=== PATIENT | female | born 1960 ===

== ENCOUNTER 2024-08-25 10:29 | Emergency (ER) | payer MEDICAID, OTHER ==
[~2024-08-25] VITALS: Ht 149.9 cm; Wt 58.1 kg
[2024-08-25] MEDS: IOHEXOL 350 MG/ML 100ML IJ ONE (10:48)
--- NOTE | 2024-08-25 11:03 | DVH ---
EXAM: CT STROKE CTH HISTORY: LEFT SIDE NUMBESS COMPARISON: None TECHNIQUE: Axial images of the head were obtained and reformatted in coronal and sagittal planes. All CT scans at this medical facility are performed using dose modulation techniques as appropriate t o a performed exam including the following: Automated exposure control was utilized; adjustment of th e MA and/or KV according to patient size; and use of iterative reconstruction technique. CT Dose: CTDI volume is 53 mGy. Dose-length product is 946 mGy*cm FINDINGS: There is no evidence of acute intracranial hemorrhage, mass, mass effect midline shift. There is no h ydrocephalus or extra-axial fluid collection. [place]-white matter differentiation is maintained. The visualized paranasal sinuses and mastoid air cells are clear. The calvarium is intact. IMPRESSION: 1. No acute intracranial process. HS:Y
[2024-08-25 11:13] LABS: Basophils # (auto) 0 10 ^3/uL (0-0.2); Basophils % (auto) 0.5 % (0.0-2.0); Eosinophils # (auto) 0.2 10 ^3/uL (0-0.8); Eosinophils % (auto) 3.1 % (0.0-7.0); Hematocrit 42.2 % (36.0-46.0); Hemoglobin 14.4 g/dL (12.2-16.2); Lymphocytes # (auto) 1.4 10 ^3/uL (0.4-5.4); Lymphocytes % (auto) 28.2 % (10.0-50.0); Mean Corpuscular Hemoglobin 30.5 pg (28.0-32.0); Mean Corpuscular Hgb Conc. 34.2 g/dL (32.0-36.0); Mean Corpuscular Volume 89.1 fL (80.0-100.0); Monocytes # (auto) 0.4 10 ^3/uL (0-1.3); Monocytes % (auto) 7.9 % (0.0-12.0); Neutrophils # (auto) 3.1 10 ^3/uL (1.6-8.6); Neutrophils % (auto) 60.3 % (37.0-80.0); Nucleated Red Blood Cells % 0.1 %; Platelet Count (auto) 282 10^3/uL (140-450); Red Blood Cells 4.74 10^6/uL (4.0-5.20); Red Cell Distribution Width 14.5 % (11.8-14.3); White Blood Cell 5.1 10^3/uL (4.4-10.8)
--- NOTE | 2024-08-25 11:14 | BSKYNEURO ---
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 Last Known Normal: 929 pst Possible Thrombolytic candidate: - not on warfarin or NOACs - no intracranial hemorrhage history - no recent major surgery - no known active major internal bleeding - no known blood disorders - no stroke in last 3 months # Scores Time of exam and NIHSS (): 08/25/2024, 10:53 Level of Consciousness 1a: [0] = Alert; keenly responsive LOC Questions 1b: [0] = Answers both questions correctly LOC Commands 1c: [0] = Performs both tasks correctly Best Gaze 2: [0] = Normal Visual 3: [0] = No visual loss Facial Palsy 4: [1] = Minor paralysis Motor Arm Left 5a: [0] = No drift Motor Arm Right 5b: [0] = No drift Motor Leg Left 6a: [0] = No drift Motor Leg Right 6b: [0] = No drift Limb Ataxia 7: [2] = Present in two limbs Sensory 8: [0] = Normal Best Language 9: [0] = No aphasia Dysarthria 10: [1] = [id number] dysarthria Extinction and Inattention 11: [0] = No abnormality NIHSS Total: 4 # Exam Vitals: vital signs reviewed SBP: 140s # Data Head CT: - no bleed - preliminarily reviewed by me, please refer to radiology read for official reading # Assessment Impression: - Ischemic Stroke (Acute) Patient says the ataxia in left arm is disabling. She works and would not be able to work with this permanent deficit. # Plan Thrombolytic/Intervention: IV thrombolytic and possible IA candidate Thrombolytic Dosing: IV tenecteplase 0.25 mg/kg, max dose 25 mg; single bolus IVP over 5 seconds Possible IA Candidate: - no signs and symptoms of LVO - CTA pending Time IV Thrombolytic Recommended (): 08/25/2024, 11:02 Labs: - hemoglobin A1c - lipid panel - troponin - TSH - ua Imaging: (urgency: STAT): - CT Angiogram Head and CT Angiogram Neck AND call back with results if abnormal Diagnostic Test: - echo with bubble study Therapy/Evaluation: - NPO until swallow evaluation - PT/OT evaluation - speech/swallow consultation Medication: - start statin with goal of LDL < 70 Thrombolytic Administration Recommendations: - I reviewed the risks/benefits/alternatives of IV thrombolytic therapy with the patient. They understand there is potential of life threatening hemorrhage from IV thrombolysis. I stated that I believe benefits outweighs risk. They wish to proceed with IV thrombolytic therapy. - BP goal< 180/105 for 24hrs post Thrombolytic administration - Call back if there is any decline in neurological condition - ICU admission - No antiplatelets or anticoagulants for next 24 hrs unless indicated for emergent IA procedure or other life threatening situation - Use Labetalol 10-20mg IV prn or Nicardipine gtt to maintain BP parameters - I have collected independent history specific to time last normal or last known well. We have collaborated with the ED provider and at this time, we have the most current timeline with the information that is available. Other: - If patient has any neurological deterioration please call me back immediately - I have discussed my recommendations with the referring provider - telemetry monitoring - LDL < 70 Disposition: transfer to ICU # Logistics Attestation of consult completion: The patient is located at: [facility]. Facility staff participated in the visit. I performed this telemedicine visit from my offsite office utilizing interactive 2 way audio and visual telecommunication technology. Total time spent in telemedicine encounter: I spent 21 minutes reviewing clinical data and/or imaging, obtaining history, examining the patient, communicating with the onsite care team, and in preparation of this report. Critical Care time: 21 minutes of this encounter were critical care time. Due to a high probability of clinically significant, life-threatening neurologic deterioration, the patient required my highest level of preparedness to intervene emergently. I spent this critical care time managing the patient in conjunction with on-site providers who requested my consultation. In addition to the above, this critical care time included recommendation and review of studi es, including imaging; arranging an urgent treatment and management plan with on-site providers; evaluation of patient's response to treatment; and documentation. This critical care time was performed to assess and manage the high probability of imminent, life-threatening deterioration that could result in neurologic catastrophe. # Demographics First Name: Shahla Last Name: Normager Villareal Facility: [facility] Electronically signed at 08/25/2024 11:10 ([place] Time) by Mani Camargo MD Yes THU CAMARGO MD Aug 25, 2024 11:14
--- NOTE | 2024-08-25 11:16 | DVH ---
CT ANGIO HEAD/Neck INDICATION: CVA EXAM DATE: 08/25/2024 10:46 AM COMPARISON: None RADIATION DOSE: CTDIvol: 23.29 mGy, DLP: 798.72 mGy*cm PROCEDURE: CT angiogram images were obtained of the head and neck. Coronal and sagittal reformatted i mages were created as well as 3D and/or MIP reconstructions. All CT scans at this medical facility are performed using dose modulation techniques as appropriate t o a performed exam including the following: Automated exposure control was utilized; adjustment of th e MA and/or KV according to patient size; and use of iterative reconstruction technique. FINDINGS: Head: On the CT angiographic images, the intracranial internal carotid arteries are patent without hemodyna mically significant stenosis. The anterior and middle cerebral arteries and their branches appear wit hin normal limits.. The vertebral basilar and posterior cerebral arteries are patent without hemodyn amically significant stenosis. There is no evidence of intracranial aneurysm or arteriovenous malform ation. There is no evidence of intracranial mass or hemorrhage. There is no abnormal enhancement. There is no hydrocephalus or extra-axial fluid collection. Neck: The common carotid, internal carotid, external carotid, and vertebral arteries are normal in caliber and appear patent without hemodynamically significant stenosis.. The vertebral arteries appear codomi nant. There is no evidence of stenosis or obvious dissection. There is no evidence of a soft tissue neck mass or pathologically enlarged cervical lymph nodes. The lung apices are clear. The osseous structures appear within normal limits. IMPRESSION: 1. Unremarkable CTA head. There is no hemodynamically significant stenosis in the intracranial arteri es. 2. Unremarkable CTA neck. There is no hemodynamically significant stenosis in the cervical segments o f the carotid and vertebral arteries. HS:Y
--- NOTE | 2024-08-25 11:27 | DVH ---
CHEST RADIOGRAPH Indication: LEFT SIDED NUMBESS Technique: Single frontal view of the chest was obtained COMPARISON: None FINDINGS: No pneumothorax, pulmonary edema, or consolidative infiltrates. The heart is upper limits of normal in size. The aortic arch is calcific. IMPRESSION: 1. No acute intrathoracic process.
[2024-08-25 11:31] LABS: INR 0.97 (0.9-1.15); Partial Thromboplastin Time 27.7 SEC (24.5-34.5); Prothrombin Time 10.3 sec (9.3-11.8)
[2024-08-25 11:32] LABS: Alanine Aminotransferase 21 U/L (7-40); Anion Gap 7 (5-15); Aspartate Aminotransferase 21 U/L (13-40); BUN/Creatinine Ratio 14.7 (10.0-20.0); Blood Urea Nitrogen 11 mg/dL (9-23); Carbon Dioxide 25 mmol/L (20-31); Chloride 105 mmol/L (98-107); Glucose 98 mg/dL (74-106); Magnesium 2.2 mg/dL (1.6-2.6); Potassium 3.5 mmol/L (3.5-5.1); Sodium 137 mmol/L (136-145)
[2024-08-25 11:33] LABS: Albumin 4.9 g/dL (3.2-4.8); Alkaline Phosphatase 121 U/L (46-116); Bilirubin, Total 0.5 mg/dL (0.2-1.0); Calcium 10.7 mg/dL (8.7-10.4); Total Protein 9.5 g/dL (5.7-8.2)
--- NOTE | 2024-08-25 11:34 | ED.PDOC ---
HPI (NEURO) HPI Comments 63Y F with PMHx DM, HTN, HLD, and thyroid disease presents to ED for chief complaint left sided facial droop and left-sided numbness/weakness x 0930 today. Pt reports tremors and difficulty speaking. Pt states she began to have unsteady gait approximately 30 minutes prior to ED arrival. Pt denies chest pain, abd pain, headache, and vision changes. Pt's last meal was at 0830 this morning. Pt denies use of blood thinners. No known allergies. Upon ED arrival, pt has lt facial droop, aphasia, and weakness. BS 99. No other symptoms reported. Chief Complaint: Left Sided Weakness Time Seen by MD: 10:35 Reviewed Notes: Nurses Notes, Medications, Allergies Information Source: Patient Mode of Arrival: Wheelchair Severity: Moderate Headache Severity: None Timing: Hours Duration: Since onset Weakness Location: (L) Sided Numbness Location: (L) Sided Onset: At rest Circumstances: Spontaneous Symptoms: Imbalance, Weakness, Numbness, Difficult speech History of: DM, Hypertension Modifying factors: Nothing Associated Signs and Symptoms: Numbness, Other Past Medical History PAST MEDICAL HISTORY: DM, High Lipids, HTN, Thyroid Surgical History: Unobtainable SIDE GLUER History: No Pertinent SIDE GLUER History Family History Family History: Unknown Social History Smoker: Non-Smoker Alcohol: Denies ETOH Use Drugs: Denies Drug Use Lives In: Home Constitutional: denies: chills, diaphoresis, fatigue, fever, malaise, sweats, weakness, others EENTM: denies: blurred vision, double vision, ear bleeding, ear discharge, ear drainage, ear pain, ear ringing, eye pain, eye redness, hearing loss, mouth pain, mouth swelling, nasal discharge, nose bleeding, nose congestion, nose pain, photophobia, tearing, throat pain, throat swelling, voice changes, others Respiratory: denies: cough, hemoptysis, orthopnea, SOB at rest, shortness of breath, SOB with excertion, stridor, wheezing, others Cardiovascular: denies: chest pain, dizzy spells, diaphoresis, Dyspnea on exertion, edema, irregular heart beat, left arm pain, lightheadedness, palpitations, PND, syncope, others Gastrointestinal: denies: abdomen distended, abdominal pain, blood streaked bowels, constipated, diarrhea, dysphagia, difficulty swallowing, hematemesis, melena, nausea, poor appetite, poor fluid intake, rectal bleeding, rectal pain, vomiting, others Genitourinary: denies: abnormal vagina bleeding, burning, dyspareunia, dysuria, flank pain, frequency, hematuria, incontinence, pain, , vagina discharge, urgency, others Neurological: reports: left sided numbness, left sided weakness, numbness, speech problems, tremors, others; denies: dizziness, fainting, headache, paresthesia, pre-existing deficit, right sided numbness, right sided weakness, seizure, tingling, weakness Musculoskeletal: denies: back pain, gout, joint pain, joint swelling, muscle pain, muscle stiffness, neck pain, others Integumetry: denies: bruises, change in color, change in hair/nails, dryness, laceration, lesions, lumps, rash, wounds, others Allergic/Immunocompromised: denies: Difficulty Healing, Frequent Infections, Hives, Itching, others Hematologic/Lymphatic: denies: anemia, blood clots, easy bleeding, easy bruising, swollen glands, others Endocrine: denies: excessive hunger, excessive sweating, excessive thirst, excessive urination, flushing, intolerance to cold, intolerance to heat, unexpl ained weight gain, unexplained weight loss, others Psychiatric: denies: anxiety, bipolar disorder, depression, hopeless, panic disorder, schizophrenia, sleepless, suicidal, others All Other Systems: Reviewed and Negative Physical Exam General Appearance: No Apparent Distress, Normal HEENT: Normal ENT Inspection, Pharynx Normal, TMs Normal Neck: Full Range of Motion, Non-Tender, Normal, Normal Inspection Respiratory: Chest Non-Tender, Lungs Clear, No Accessory Muscle Use, No Respiratory Distress, Normal Breath Sounds Cardiovascular: No Edema, No JVD, No Murmur, No Gallop, Normal Peripheral Pulses, Regular Rate/Rhythm Breast Exam: Deferred Gastrointestinal: No Organomegaly, Non Tender, No Pulsatile Mass, Normal Bowel Sounds, Soft Genitalia: Deferred Pelvic: Deferred Rectal: Deferred Extremities: No calf tenderness, Normal capillary refill, Normal inspection, Normal range of motion, Non-tender, No pedal edema Musculoskeletal : Apperance: Normal Neurologic: Alert, Other (Level of Consciousness 1a: [0] = Alert; keenly responsive; LOC Questions 1b: [0] = Answers both questions correctly; LOC Commands 1c: [0] = Performs both tasks correctly; Best Gaze 2: [0] = Normal Visual 3: [0] = No visual loss; Facial Palsy 4: [1] = Minor paralysis; Motor Arm Left 5a: [0] = No drift; Motor Arm Right 5b: [0] = No drift; Motor Leg Left 6a: [0] = No drift; Motor Leg Right 6b: [0] = No drift; Limb Ataxia 7: [2] = Present in two limbs; Sensory 8: [0] = Normal; Best Language 9: [0] = No aphasia; Dysarthria 10: [1] = Rhnu-me-zyjktmak dysarthria; Extinction and Inattention 11: [0] = No abnormality NIHSS Total: 4) Cerebellar Function: Normal Reflexes: Normal Skin: Dry, Normal Color, Warm Lymphatic: No Adenopathy Was a procedure done? Was a procedure done?: No Differential Diagnosis (SZ) Seizure: Alcohol Withdrawl, CVA/TIA, Hypoglycemia, Hyponatremia CVA: Antonio's Palsy, Delirium Tremens, DKA, Electrolyte Imbalance, Encephalopathy, SAH, TIA General Weakness: Anemia Headache: Closed Head Injury X-Ray, Labs, Meds, VS Vital Signs Date Time Temp Pulse Resp B/P (MAP) Pulse Ox O2 Delivery O2 Flow Rate FiO2 08/25/24 13:13 98.2 53 16 132/80 (97) 100 98.2 08/25/24 13:00 98.2 55 10 137/78 (97) 99 98.2 08/25/24 12:45 54 12 144/84 (104) 99 08/25/24 12:30 98.1 57 12 163/81 (108) 99 98.1 08/25/24 12:15 98.2 55 14 148/81 (103) 98 98.2 08/25/24 12:03 56 12 148/83 (104) 100 08/25/24 12:00 57 181/107 08/25/24 11:08 68 16 99 08/25/24 10:35 Room Air* 0 21 08/25/24 10:32 99.3 97 20 145/82 (103) 99 Lab Test 08/25/24 11:32 08/25/24 11:14 08/25/24 11:13 08/25/24 10:40 Range/Units Urine Color Colorless Yellow Urine Clarity Clear Clear Urine pH 7.0 5.0-9.0 Urine Specific [place] 1.021 1.001-1.035 Urine Protein Negative Negative Urine Ketones Negative Negative Urine Blood Negative Negative /uL Urine Nitrite Negative Negative Urine Bilirubin Negative Negative Urine Urobilinogen Normal Negative mg/dL Urine Leukocyte Esterase 1+ Negative /uL Urine RBC 1 0 - 4 /hpf Urine WBC 1 0 - 5 /hpf Urine Squamous Epithelial Cells Few <5 /hpf Urine Bacteria None seen None Seen /hpf Urine Glucose Normal Normal mg/dL Troponin I High Sensitivity < 3 L < 3 L </=34 ng/L POC Glucose 73 70-106 mg/dl White Blood Count 5.1 4.4-10.8 10^3/uL Red Blood Count 4.74 4.0-5.20 10^6/uL Hemoglobin 14.4 12.2-16.2 g/dL Hematocrit 42.2 36.0-46.0 % Mean Corpuscular Volume 89.1 80.0-100.0 fL Mean Corpuscular Hemoglobin 30.5 28.0-32.0 pg Mean Corpuscular Hemoglobin Concent 34.2 32.0-36.0 g/dL Red Cell Distribution Width 14.5 H 11.8-14.3 % Platelet Count 282 140-450 10^3/uL Mean Platelet Volume 7.0 6.9-10.8 fL Neutrophils (%) (Auto) 60.3 37.0-80.0 % Lymphocytes (%) (Auto) 28.2 10.0-50.0 % Monocytes (%) (Auto) 7.9 0.0-12.0 % Eosinophils (%) (Auto) 3.1 0.0-7.0 % Basophils (%) (Auto) 0.5 0.0-2.0 % Neutrophils # (Auto) 3.1 1.6-8.6 10 ^3/uL Lymphocytes # (Auto) 1.4 0.4-5.4 10 ^3/uL Monocytes # (Auto) 0.4 0-1.3 10 ^3/uL Eosinophils # (Auto) 0.2 0-0.8 10 ^3/uL Basophils # (Auto) 0 0-0.2 10 ^3/uL Nucleated Red Blood Cells 0.1 % Prothrombin Time 10.3 9.3-11.8 sec Prothrombin Time INR 0.97 0.9-1.15 Activated Partial Thromboplast Time 27.7 24.5-34.5 SEC Sodium Level 137 136-145 mmol/L Potassium Level 3.5 3.5-5.1 mmol/L Chloride Level 105 98-107 mmol/L Carbon Dioxide Level 25 20-31 mmol/L Anion Gap 7 5-15 Blood Urea Nitrogen 11 9-23 mg/dL Creatinine 0.75 0.550-1.02 mg/dL Glomerular Filtration Rate Calc 89 >90 mL/min BUN/Creatinine Ratio 14.7 10.0-20.0 Serum Glucose 98 74-106 mg/dL Calcium Level 10.7 H 8.7-10.4 mg/dL Magnesium Level 2.2 1.6-2.6 mg/dL Total Bilirubin 0.5 0.2-1.0 mg/dL Aspartate Amino Transferase (AST) 21 13-40 U/L Alanine Aminotransferase (ALT) 21 7-40 U/L Alkaline Phosphatase 121 H 46-116 U/L B-Type Natriuretic Peptide 23.88 0-100 pg/mL Total Protein 9.5 H 5.7-8.2 g/dL Albumin 4.9 H 3.2-4.8 g/dL Current Medications Medications (Trade) Dose Ordered Sig/Colin Route Start Time Stop Time Status Last Admin Tenecteplase (Tnkase) 15 mg ONCE ONCE IV 08/25/24 11:30 08/25/24 11:31 DC 08/25/24 12:00 Labetalol HCl (Labetalol HCl) 20 mg ONCE ONCE IV 08/25/24 12:00 08/25/24 12:01 DC 08/25/24 12:00 [place] [address] Ph: [phone] DIAGNOSTIC IMAGING Diagnostic Imaging Report : [id number] Signed PATIENT: KULWANT JACOBT: [id number] UNIT: [id number] : 1960 LOC: ER ROOM / BED: / AGE / SEX: 63 / F ADM STATUS: REG ER SERVICE 1035 ORDERING PHYSICIAN: MANHAZ MAYES MD PROCEDURE(s): CTH - STROKE CTH REASON: LEFT SIDE NUMBESS ORDER NUMBER(s): [id number], ACCESSION NUMBER(s): [id number] EXAM: CT STROKE CTH HISTORY: LEFT SIDE NUMBESS COMPARISON: None TECHNIQUE: Axial images of the head were obtained and reformatted in coronal and sagittal planes. All CT scans at this medical facility are performed using dose modulation techniques as appropriate to a performed exam including the following: Automated exposure control was utilized; adjustment of the MA and/or KV according to patient size; and use of iterative reconstruction technique. CT Dose: CTDI volume is 53 mGy. Dose-length product is 946 mGy*cm FINDINGS: There is no evidence of acute intracranial hemorrhage, mass, mass effect midline shift. There is no hydrocephalus or extra-axial fluid collection. [place]-white matter differentiation is maintained. The visualized paranasal sinuses and mastoid air cells are clear. The calvarium is intact. IMPRESSION: 1. No acute intracranial process. HS:Y ATED BY: STEVE MORA MD DICTATED DATE/TIME: 08/25/24 1100 SIGNED BY: STEVE MORA MD SIGNED DATE/TIME: 08/25/24 1100 CC: [place] [address] Ph: [phone] DIAGNOSTIC IMAGING Diagnostic Imaging Report : [id number] Signed PATIENT: KULWANT JACOBT: [id number] UNIT: [id number] : 1960 LOC: ER ROOM / BED: / AGE / SEX: 63 / F ADM STATUS: REG ER SERVICE 1041 ORDERING PHYSICIAN: MAHNAZ MAYES MD PROCEDURE(s): [place] - ANGIO HEAD/Neck REASON: CVA ORDER NUMBER(s): [id number], ACCESSION NUMBER(s): [id number] CT ANGIO HEAD/Neck INDICATION: CVA EXAM DATE: 08/25/2024 10:46 AM COMPARISON: None RADIATION DOSE: CTDIvol: 23.29 mGy, DLP: 798.72 mGy*cm PROCEDURE: CT angiogram images were obtained of the head and neck. Coronal and sagittal reformatted images were created as well as 3D and/or MIP reconstructions. All CT scans at this medical facility are performed using dose modulation techniques as appropriate to a performed exam including the following: Automated exposure control was utilized; adjustment of the MA and/or KV according to patient size; and use of iterative reconstruction technique. FINDINGS: Head: On the CT angiographic images, the intracranial internal carotid arteries are patent without hemodynamically significant stenosis. The anterior and middle cerebral arteries and their branches appear within normal limits.. The vertebral basilar and posterior cerebral arteries are patent without hemodynamically significant stenosis. There is no evidence of intracranial aneurysm or arteriovenous malformation. There is no evidence of intracranial mass or hemorrhage. There is no abnormal enhancement. There is no hydrocephalus or extra-axial fluid collection. Neck: The common carotid, internal carotid, external carotid, and vertebral arteries are normal in caliber and appear patent without hemodynamically significant stenosis.. The vertebral arteries appear codominant. There is no evidence of stenosis or obvious dissection. There is no evidence of a soft tissue neck mass or pathologically enlarged cervical lymph nodes. The lung apices are clear. The osseous structures appear within normal limits. IMPRESSION: 1. Unremarkable CTA head. There is no hemodynamically significant stenosis in the intracranial arteries. 2. Unremarkable CTA neck. There is no hemodynamically significant stenosis in the cervical segments of the carotid and vertebral arteries. HS:Y ATED BY: STEVE MORA MD DICTATED DATE/TIME: 08/25/24 111 SIGNED BY: STEVE MORA MD SIGNED DATE/TIME: 08/25/24 111 CC: [place] [address] Ph: [phone] DIAGNOSTIC IMAGING Diagnostic Imaging Report : [id number] Signed PATIENT: DARRELL LOMELI TACCT: [id number] UNIT: [id number] : 1960 LOC: ER ROOM / BED: / AGE / SEX: 63 / F ADM STATUS: REG ER SERVICE 1035 ORDERING PHYSICIAN: MAHNAZ MAYES MD PROCEDURE(s): CXR1 - CHEST XRAY 1 VIEW REASON: LEFT SIDED NUMBESS ORDER NUMBER(s): [id number], ACCESSION NUMBER(s): [id number] CHEST RADIOGRAPH Indication: LEFT SIDED NUMBESS Technique: Single frontal view of the chest was obtained COMPARISON: None FINDINGS: No pneumothorax, pulmonary edema, or consolidative infiltrates. The heart is upper limits of normal in size. The aortic arch is calcific. IMPRESSION: 1. No acute intrathoracic process. ATED BY: MADHAVI ADAMS MD DICTATED DATE/TIME: 08/25/241124 SIGNED BY: MADHAVI ADAMS MD SIGNED DATE/TIME: 08/25/241124 CC: X-Ray, Labs, Meds, VS Comment 63-year-old female with history of hypertension, hyperlipidemia, diabetes, hypothyroidism presenting here today with complaints of left-sided facial numbness/weakness and numbness/weakness to the left upper and lower extremities that started at 9:30 a.m. today, within the tPA window. No history of trauma. No recent history of illness. No prior history of stroke or heart attack. NIH stroke scale of 4. Patient was made a code stroke and CT head non-con and CT angio of the head and neck were unremarkable. I discussed the case with Neurology on-call who were in agreement with the plan to give the patient anti thrombotic and transfer for higher level of care. Checklist was completed inpatient without any major or relative contraindications to anti thrombotic medication and it was administered as per protocol. Patient did require a dose of labetalol 20 mg IV to reduce her borderline high blood pressure of 179/120. Patient tolerated both the labetalol in the antithrombotic well without any complications. Patient's son was at bedside who was in agreement with the plan as well. At 11:54 a.m., I spoke with [facility] attending who accepted the patient for transfer for higher level of care to his hospital. Time of 1ST Reevaluation: 11:05 Reevaluation 1ST: Unchanged Time of 2ND Reevaluation: 12:23 Reevaluation 2ND: Unchanged Time of 3RD Reevaluation: 12:56 Reevaluation 3RD: Unchanged Consultation: Other (Tele neuro for stroke) Patient Education/Counseling: Diagnosis, Treatment, Prognosis Family Education/Counseling: Diagnosis, Treatment, Prognosis Departure 1 Departure Time of Disposition: 13:34 Impression: Primary Impression: Ischemic stroke Additional Impression: Hypertension Disposition: 02 SHORT TERM HOSPITAL Admit to: ICU Condition: Guarded Critical Care Note Critical Care Time?: Yes (45 min-critical care time only) Stability Stability form required: Yes Stable for transfer: Other (Higher level of care) Comments Patient was accepted for transfer to higher level of care by [facility] attending Dr. Atwood at 11:54 a.m. after my discussion with him regarding the patient's case and management. Heart Score Heart Score: Heart Score Response (Comments) Value History N/A 0 EKG N/A 0 Age N/A 0 Risk Factors N/A 0 Troponin N/A 0 Total 0 I personally scribed for MAHNAZ MAYES MD ([facility] on 08/25/24 at 11:34. Electronically submitted by Ramya Whittington ([employer]). I personally scribed for MAHNAZ MAYES MD ([facility]) on 08/25/24 at 11:41. Electronically submitted by Ramya Whittington ([employer]). I personally scribed for MAHNAZ MAYES MD ([facility]) on 08/25/24 at 13:14. Electronically submitted by Ramya Whittington ([employer]). MAHNAZ MAYES MD Aug 25, 2024 11:34
[2024-08-25 11:42] LABS: Urine Bacteria None Seen /hpf (None Seen)
[2024-08-25 11:57] LABS: Urine Blood Negative /uL (Negative); Urine Clarity Clear (Clear); Urine Color Colorless (Yellow); Urine Protein, UAD Negative (Negative); Urine Specific Gravity 1.021 (1.001-1.035); Urine Squamous Epithelial Cell FEW /hpf (<5); Urine Urobilinogen Normal (Negative); Urine WBC 1 /hpf (0 - 5)
[2024-08-25] MEDS: LABETALOL HCL 20 MG/4 ML VL IV ONE ×2 (12:00→12:06)
[2024-08-25] MEDS: TENECTEPLASE 50mg/10ml KIT IV ONE (12:00)
[2024-08-25 13:13] VITALS: BP 132/80; PULSE 53; RESP 16; TEMP 98.2; O2SAT 100
--- NOTE | 2024-08-28 09:32 | ECG ---
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
== END 2024-08-25 13:21 | disposition short-term general hospital (02) ==
LOC: ER 10:29
DX: I63.9 Cerebral infarction, unspecified (principal); I10 Essential (primary) hypertension; R29.810 Facial weakness; E78.5 Hyperlipidemia, unspecified; E11.9 Type 2 diabetes mellitus without complications; E07.9 Disorder of thyroid, unspecified; R26.81 Unsteadiness on feet
CPT/HCPCS: 36415; 70450; 70496; 70498; 71045; 80053; 81001; 82947; 83735; 83880; 84484; 85025; 85610; 85730; 93005; 96374; 96375; 99291; J3101; Q9967; 82962